=== PATIENT | female | born 1945 | race Asian ===

== ENCOUNTER 2018-09-23 06:11 | Day surgery (SDC) | payer OTHER ==
[~2018-09-23 06:11] MED LIST: CEFAZOLIN 2 GM/50 ML (PMX) 50 ML IVPB
[2018-09-23] MEDS: SOD CHLORIDE 0.9% 1,000 ML IV (07:21)
[2018-09-23] MEDS ORDERED: SUCCINYLCHOLINE CHLORIDE 100 MG/5 ML SYG IV (07:40)
[2018-09-23] MEDS ORDERED: MEPERIDINE 100 MG INJ (07:40)
[2018-09-23] MEDS ORDERED: ROCURONIUM 50 MG INJ (07:40)
[2018-09-23] MEDS ORDERED: GLYCOPYRROLATE 0.4 MG INJ (07:40)
[2018-09-23] MEDS ORDERED: LIDOCAINE 2% (SDV) 5 ML INJ (07:40)
[2018-09-23] MEDS ORDERED: PROPOFOL 20 ML (07:40)
[2018-09-23] MEDS ORDERED: NEOSTIGMINE 3 MG/3 ML SYRINGE (07:40)
[2018-09-23] MEDS ORDERED: CEFAZOLIN 1 GM INJ (07:57)
[2018-09-23] MEDS ORDERED: ONDANSETRON 4 MG INJ (08:02)
[2018-09-23] MEDS ORDERED: METOCLOPRAMIDE 10 MG INJ (08:02)
[2018-09-23] MEDS ORDERED: ATROPINE 1 MG/10 ML SYRINGE (08:17)
[2018-09-23] MEDS ORDERED: hydrALAzine 20 MG INJ IV (08:30)
[2018-09-23] MEDS ORDERED: MEPERIDINE 25 MG INJ IV (08:30)
[2018-09-23] MEDS ORDERED: MIDAZOLAM 1 MG/ML 2 ML INJ IV (08:30)
[2018-09-23] MEDS ORDERED: FENTAnyl 50 MCG/ML VIAL IV ×3 (08:30)
[2018-09-23] MEDS ORDERED: METOCLOPRAMIDE 10 MG INJ IV (08:30)
[2018-09-23] MEDS ORDERED: DIPHENHYDRAMINE 50 MG INJ IV (08:30)
[2018-09-23] MEDS ORDERED: HYDROmorphONE 1 MG/5 ML IV SYRINGE IV ×2 (08:30)
[2018-09-23] MEDS ORDERED: EPHEDrine SULFATE 50 MG/5 ML SYG IV (08:30)
[2018-09-23] MEDS ORDERED: OXYCODONE/ACETAMINOPHEN (5/325) TAB PO ×2 (08:30)
[2018-09-23] MEDS ORDERED: LABETALOL HCL 20MG INJ IV (08:30)
[2018-09-23] MEDS: BUPIVACAINE 0.25% (MPF) 30 ML INJ (08:35)
[2018-09-23] MEDS ORDERED: HYDROCODONE/APAP (5/325) TAB PO ×2 (09:00)
[2018-09-23] MEDS ORDERED: ONDANSETRON 4 MG INJ IV (09:00)
[2018-09-23] MEDS ORDERED: morphine 2 MG INJ IV (09:00)
[2018-09-23] MEDS: ONDANSETRON 4 MG INJ IV (09:39)
[2018-09-23] MEDS: HYDROmorphONE 1 MG/5 ML IV SYRINGE IV (09:39)
== END 2018-09-23 10:30 | disposition home or self-care (01) ==
LOC: SDS 06:11
DX: K80.10 Calculus of gallbladder with chronic cholecystitis without obstruction (principal); E11.9 Type 2 diabetes mellitus without complications; I10 Essential (primary) hypertension
CPT/HCPCS: 47562; 82962; 88304